=== PATIENT | female | born 1990 | race Caucasian/White ===

== ENCOUNTER 2017-11-16 12:08 | Emergency (ER) | payer OTHER, MEDICAID ==
[~2017-11-16] VITALS: Ht 165.1 cm; Wt 79.4 kg
[~2017-11-16 12:08] MED LIST: ABILIFY10 MG PO; NASONEX17 GM NASAL; TRAZODONE 150150 M1 PO; TRAZODONE HCL50 MG PO; VISTARIL 25 MG25 M1 PO; WELLBUTRIN 100100 MG PO; XANAX 0.25 MG0.25 MG PO; XANAX 0.5 MG0.5 MG PO
[2017-11-16] MEDS ORDERED: BIRTH CONTROL (12:22)
[2017-11-16] MEDS ORDERED: WELLBUTRIN 100100 MG PO (12:22)
[2017-11-16] MEDS ORDERED: BUSPIRONE HCL10 MG PO (12:23)
[2017-11-16] MEDS ORDERED: WELLBUTRIN XL150 MG PO ×2 (12:27→12:34)
[2017-11-16 12:34] VITALS: BP 106/71
== END 2017-11-16 12:35 | disposition home or self-care (01) ==
LOC: M.ERS 12:08
DX: Z76.0 Encounter for issue of repeat prescription (principal); F17.210 Nicotine dependence, cigarettes, uncomplicated; F31.9 Bipolar disorder, unspecified; F41.9 Anxiety disorder, unspecified; Z88.5 Allergy status to narcotic agent; Z91.040 Latex allergy status; Z88.1 Allergy status to other antibiotic agents

== ENCOUNTER 2017-11-30 12:50 | Emergency (ER) | payer OTHER, MEDICAID ==
[~2017-11-30] VITALS: Ht 165.1 cm; Wt 77.1 kg
[~2017-11-30 12:50] MED LIST changes: +BIRTH CONTROL; +BUSPIRONE HCL10 MG PO; +WELLBUTRIN XL150 MG PO
[2017-11-30 12:55] VITALS: BP 120/71
[2017-11-30] MEDS ORDERED: ABILIFY15 MG PO ×2 (13:01→13:10)
[2017-11-30] MEDS ORDERED: AMOXICILLIN 50500 MG PO (13:10)
[2017-11-30] MEDS ORDERED: IBUPROFEN 800800 M1 PO (13:10)
== END 2017-11-30 13:19 | disposition home or self-care (01) ==
LOC: M.ERS 12:50
DX: K08.89 Other specified disorders of teeth and supporting structures (principal); F31.9 Bipolar disorder, unspecified; F41.9 Anxiety disorder, unspecified; F17.210 Nicotine dependence, cigarettes, uncomplicated; Z98.890 Other specified postprocedural states; Z76.0 Encounter for issue of repeat prescription; Z88.5 Allergy status to narcotic agent; Z91.040 Latex allergy status; Z88.1 Allergy status to other antibiotic agents

== ENCOUNTER 2018-01-06 18:38 | Emergency (ER) | payer OTHER, MEDICAID ==
[~2018-01-06] VITALS: Ht 165.1 cm; Wt 79.8 kg
[~2018-01-06 18:38] MED LIST changes: +ABILIFY15 MG PO; +AMOXICILLIN 50500 MG PO; +IBUPROFEN 800800 M1 PO
[2018-01-06 18:42] VITALS: BP 102/67
[2018-01-06] MEDS ORDERED: ABILIFY20 MG PO (18:47)
[2018-01-07] MEDS ORDERED: CLONAZEPAM 0.50.5 M1 PO (18:20)
[2018-01-07] MEDS ORDERED: VISTARIL 25 MG25 M1 PO (18:21)
[2018-01-07] MEDS ORDERED: IBUPROFEN 800800 M1 PO (19:34)
== END 2018-01-06 19:30 | disposition left against medical advice (07) ==
LOC: M.ERS 18:38
DX: Z53.21 Procedure and treatment not carried out due to patient leaving prior to being seen by health care provider (principal)

== ENCOUNTER 2018-01-07 18:06 | Emergency (ER) | payer OTHER, MEDICAID ==
[~2018-01-07] VITALS: Ht 165.1 cm; Wt 79.8 kg
[~2018-01-07 18:06] MED LIST changes: +ABILIFY20 MG PO
[2018-01-07] MEDS ORDERED: CLONAZEPAM 0.50.5 M1 PO (18:20)
[2018-01-07] MEDS ORDERED: VISTARIL 25 MG25 M1 PO (18:21)
[2018-01-07] MEDS ORDERED: IBUPROFEN 800800 M1 PO (19:34)
[2018-01-07 19:44] VITALS: BP 118/69
== END 2018-01-07 19:45 | disposition home or self-care (01) ==
LOC: M.ERS 18:06
DX: S93.691A Other sprain of right foot, initial encounter (principal); F41.9 Anxiety disorder, unspecified; F32.9 Major depressive disorder, single episode, unspecified; F17.210 Nicotine dependence, cigarettes, uncomplicated; Z91.040 Latex allergy status; X58.XXXA Exposure to other specified factors, initial encounter; Y93.89 Activity, other specified; Y92.89 Other specified places as the place of occurrence of the external cause; Y99.0 Civilian activity done for income or pay

== ENCOUNTER 2018-06-27 15:32 | Emergency (ER) | payer OTHER, MEDICAID ==
[~2018-06-27] VITALS: Ht 165.1 cm; Wt 78.5 kg
[~2018-06-27 15:32] MED LIST changes: +CLONAZEPAM 0.50.5 M1 PO
[2018-06-27] MEDS ORDERED: BUSPIRONE HCL10 MG PO (15:48)
[2018-06-27] MEDS ORDERED: ABILIFY20 MG PO (16:03)
[2018-06-27] MEDS ORDERED: CLONAZEPAM 0.50.5 M1 PO (16:03)
[2018-06-27] MEDS ORDERED: TRAZODONE 150150 M1 PO (16:03)
[2018-06-27 16:10] VITALS: BP 103/61
== END 2018-06-27 16:11 | disposition home or self-care (01) ==
LOC: M.ERS 15:32
DX: F41.9 Anxiety disorder, unspecified (principal); F31.9 Bipolar disorder, unspecified; Z76.0 Encounter for issue of repeat prescription; F17.210 Nicotine dependence, cigarettes, uncomplicated; Z91.040 Latex allergy status

== ENCOUNTER 2018-10-07 15:26 | Emergency (ER) | payer OTHER ==
[~2018-10-07] VITALS: Ht 165.1 cm; Wt 81.7 kg
[2018-10-07] MEDS ORDERED: AMOXICILLIN 50500 MG PO (15:54)
[2018-10-07 16:05] VITALS: BP 112/66
== END 2018-10-07 16:05 | disposition home or self-care (01) ==
LOC: M.ERS 15:26
DX: K08.89 Other specified disorders of teeth and supporting structures (principal); F31.9 Bipolar disorder, unspecified; F41.9 Anxiety disorder, unspecified; F17.210 Nicotine dependence, cigarettes, uncomplicated; Z91.040 Latex allergy status; Z98.890 Other specified postprocedural states

== ENCOUNTER 2018-10-28 12:59 | Emergency (ER) | payer OTHER ==
[~2018-10-28] VITALS: Ht 165.1 cm; Wt 81.7 kg
[2018-10-28 13:11] VITALS: BP 123/82
[2018-10-28] MEDS ORDERED: VISTARIL50 MG PO (13:15)
== END 2018-10-28 13:38 | disposition home or self-care (01) ==
LOC: M.ERS 12:59
DX: R11.2 Nausea with vomiting, unspecified (principal); F17.210 Nicotine dependence, cigarettes, uncomplicated; G47.00 Insomnia, unspecified; F31.9 Bipolar disorder, unspecified; F41.9 Anxiety disorder, unspecified; Z91.040 Latex allergy status; Z98.890 Other specified postprocedural states

== ENCOUNTER 2018-11-14 16:24 | Emergency (ER) | payer OTHER ==
[~2018-11-14] VITALS: Ht 165.1 cm; Wt 86.2 kg
[~2018-11-14 16:24] MED LIST changes: +VISTARIL50 MG PO
[2018-11-14 16:34] VITALS: BP 110/59
[2018-11-14] MEDS ORDERED: BACTRIM DS TAB1 EAC1 PO (16:39)
[2018-11-14] MEDS ORDERED: FLAGYL500 M1 PO (16:41)
== END 2018-11-14 16:58 | disposition home or self-care (01) ==
LOC: M.ERS 16:24
DX: L05.01 Pilonidal cyst with abscess (principal); F31.9 Bipolar disorder, unspecified; F41.9 Anxiety disorder, unspecified; F17.210 Nicotine dependence, cigarettes, uncomplicated; Z91.040 Latex allergy status; Z98.890 Other specified postprocedural states

== ENCOUNTER 2019-02-14 17:21 | Emergency (ER) | payer OTHER ==
[~2019-02-14] VITALS: Ht 165.1 cm; Wt 86.2 kg
[~2019-02-14 17:21] MED LIST changes: +BACTRIM DS TAB1 EAC1 PO; +FLAGYL500 M1 PO
[2019-02-14] MEDS ORDERED: CLEOCIN HCL150 MG PO (17:40)
[2019-02-14] MEDS ORDERED: ACETAMINOPHEN-1 EAC1 PO (17:40)
[2019-02-14 17:46] VITALS: BP 118/82
== END 2019-02-14 17:47 | disposition home or self-care (01) ==
LOC: M.ERS 17:21
DX: N76.0 Acute vaginitis (principal); F17.210 Nicotine dependence, cigarettes, uncomplicated; G47.00 Insomnia, unspecified; F31.9 Bipolar disorder, unspecified; F41.9 Anxiety disorder, unspecified; Z91.040 Latex allergy status; Z98.890 Other specified postprocedural states

== ENCOUNTER 2019-04-04 07:25 | Emergency (ER) | payer OTHER ==
[~2019-04-04] VITALS: Ht 165.1 cm; Wt 81.7 kg
[~2019-04-04 07:25] MED LIST changes: +ACETAMINOPHEN-1 EAC1 PO; +CLEOCIN HCL150 MG PO
[2019-04-04 08:02] LABS: ABSOLUTE EOSINOPHILS 0.5 thou/uL (0.0-0.7); ABSOLUTE LYMPHOCYTES 1.4 thou/uL (0.8-5.3); ABSOLUTE MONOCYTES 0.8 thou/uL (0.0-1.2); ABSOLUTE NEUTROPHILS 3.3 thou/uL (1.6-8.1); BASOPHILS 0.7 %; HEMATOCRIT 38.9 % (37.0-47.0); HEMOGLOBIN 12.9 gm/dL (12.0-15.0); MCH 27.5 pg (26.0-34.0); MCHC 33.3 g/dL (28.0-37.0); MCV 82.6 fL (80.0-100.0); MONOCYTES 12.7 %; MPV 6.8 fl. (7.2-11.1); NUCLEATED RBCS 0 /100WBC; PLATELET COUNT* 261 thou/uL (150-400); POLYS 54.6 %; RBC 4.71 mil/uL (4.20-5.00); RDW-CV 14.2 % (10.5-14.5)
[2019-04-04 08:09] LABS: ANION GAP 10 mmol/L (7-16); BUN 9 mg/dL (7-18); CALCIUM 8.6 mg/dL (8.5-10.1); CHLORIDE 105 mmol/L (98-107); CO2 25 mmol/L (21-32); GLUCOSE 100 mg/dL (70-99); POTASSIUM 4.2 mmol/L (3.5-5.1); SODIUM 140 mmol/L (136-145)
[2019-04-04 08:17] LABS: SALICYLATE 3.4 mg/dL (2.8-20.0)
[2019-04-04 08:18] LABS: ACETAMINOPHEN < 2 ug/mL (10-30); ALBUMIN 3.5 g/dL (3.4-5.0); ALCOHOL < 10 mg/dL (<10); ALKALINE PHOSPHATASE 65 U/L (46-116); SGOT 22 U/L (15-37); SGPT 25 U/L (30-65); TOTAL BILIRUBIN 0.3 mg/dL (<0.1-1.0); TOTAL PROTEIN 7.6 g/dL (6.4-8.2); TROPONIN-I LEVEL <0.06 ng/mL (<0.06)
[2019-04-04 08:28] LABS: URINE BILIRUBIN NEGATIVE (Negative); URINE BLOOD TRACE (Negative); URINE CLARITY CLEAR; URINE COLOR YELLOW; URINE GLUCOSE-RANDOM NEGATIVE (Negative); URINE KETONES NEGATIVE (Negative); URINE LEUKOCYTES-REFLEX TRACE (Negative); URINE NITRITE-REFLEX NEGATIVE (Negative); URINE PROTEIN NEGATIVE (Negative); URINE SPECIFIC GRAVITY >= 1.030 (1.005-1.030); URINE UROBILINOGEN 0.2 E.U./dl (0.2-1.0)
[2019-04-04 08:37] LABS: AMP/METHAMP Negative (Negative); BARBITURATES Negative (Negative); BENZODIAZEPINES Negative (Negative); COCAINE Negative (Negative); METHADONE POSITIVE (Negative); OPIATES Negative (Negative); PCP Negative (Negative); THC Negative (Negative)
[2019-04-04 08:42] LABS: SQUAMOUS >10 Many /LPF (0-3)
[2019-04-04 08:43] LABS: BACTERIA-REFLEX 1-9 Few /HPF (None Seen); URINE RBC 0-2 Rare /HPF (0-2); URINE WBC-REFLEX 0-5 Rare /HPF (0-5)
[2019-04-04 08:44] LABS: CASTS None Seen /LPF (None Seen); CRYSTALS None Seen /LPF (None Seen); MUCUS 0-3 Light strn/LPF (None Seen)
[2019-04-04 10:32] VITALS: BP 98/67
--- NOTE | 2019-04-05 12:40 | EKG ---
[place] [address] ELECTROCARDIOGRAM REPORT Name: SANJEEVDULCE MARIA YANCI Room: [facility]#: [id number] Admission: 04/04/19 Attend Phys: Discharge: 04/04/19 Date of : [birth year] Report #: [id number] THIS REPORT FOR: //name// [facility] ED Test Date: 2019-04-04 Test Time: 07:28:26 Pat Name: DULCE MARIA PACE Department: Room: Gender: F Engine Manager: Corinne DAMON : 1990 Requested By: Mak Steel Order Number: [id number] MD: Harrison Pacheco Measurements Intervals [place] Rate: 122 P: 55 ID: [id number] QRS: 33 QRSD: 86 T: 10 QT: 316 QTc: 451 Interpretive Statements Sinus tachycardia Low voltage, precordial leads No previous ECG available for comparison Electronically Signed On 04-05-2019 12:40:26 CDT by Harrison Pacheco [email or web address] <ELECTRONICALLY SIGNED> By: Harrison Pacheco MD, [facility] 04/05/19 1240 0728 0728 Harrison Pacheco MD, FACC /EPI
== END 2019-04-04 10:40 | disposition home or self-care (01) ==
LOC: M.ERS 07:25
PROVIDERS: Emergency Medicine Emergency Medical Services
DX: T43.591A Poisoning by other antipsychotics and neuroleptics, accidental (unintentional), initial encounter (principal); G47.00 Insomnia, unspecified; F31.9 Bipolar disorder, unspecified; F41.9 Anxiety disorder, unspecified; Z91.040 Latex allergy status; Z98.890 Other specified postprocedural states

== ENCOUNTER 2020-11-03 14:28 | Emergency (ER) | payer MEDICAID ==
[~2020-11-03] VITALS: Ht 167.6 cm; Wt 86.2 kg
[2020-11-03 15:09] LABS: HEMATOCRIT 36.9 % (37.0-47.0); HEMOGLOBIN 11.9 gm/dL (12.0-15.0); MCHC 32.3 g/dL (28.0-37.0); MCV 83.8 fL (80.0-100.0); MPV 6.4 fl. (7.2-11.1); RBC 4.4 mil/uL (4.20-5.00); RDW-CV 14.7 % (10.5-14.5); WBC 11.9 thou/uL (4.0-11.0)
[2020-11-03 15:15] LABS: CALCIUM 7.9 mg/dL (8.5-10.1); CREATININE 0.8 mg/dL (0.6-1.3); POTASSIUM 3.7 mmol/L (3.5-5.1)
[2020-11-03 15:17] LABS: URINE BILIRUBIN NEGATIVE (Negative); URINE BLOOD NEGATIVE (Negative); URINE CLARITY CLEAR; URINE COLOR YELLOW; URINE GLUCOSE-RANDOM 1+ (Negative); URINE KETONES NEGATIVE (Negative); URINE LEUKOCYTES NEGATIVE (Negative); URINE NITRITE NEGATIVE (Negative); URINE PROTEIN 1+ (Negative); URINE UROBILINOGEN 0.2 E.U./dl (0.2-1.0)
[2020-11-03 15:20] LABS: ALBUMIN 3.3 g/dL (3.4-5.0); TOTAL BILIRUBIN 0.4 mg/dL (<0.1-1.0); TOTAL PROTEIN 7.3 g/dL (6.4-8.2)
[2020-11-03 15:24] LABS: AMP/METHAMP Negative (Negative); BARBITURATES Negative (Negative); BENZODIAZEPINES Negative (Negative); COCAINE Negative (Negative); METHADONE Negative (Negative); OPIATES POSITIVE (Negative); PCP Negative (Negative); THC Negative (Negative)
[2020-11-03 15:27] LABS: SALICYLATE < 2.8 mg/dL (2.8-20.0)
[2020-11-03 15:31] LABS: ACETAMINOPHEN < 2 ug/mL (10-30); ALCOHOL < 10 mg/dL (<10)
[2020-11-03 16:02] VITALS: BP 110/75
--- NOTE | 2020-11-04 09:02 | EKG ---
[place] [address] ELECTROCARDIOGRAM REPORT Name: SANJEEVDULCE MARIA YANCI Room: [facility]#: [id number] Admission: 11/03/20 Attend Phys: Discharge: 11/03/20 Date of : [birth year] Date of Service: 11/03/20 1435 Report #: [id number] THIS REPORT FOR: //name// [facility] ED Test Date: 2020-11-03 Test Time: 14:35:19 Pat Name: DULCE MARIA PACE Department: Room: Gender: F Cryptographic Technician: : 1990 Requested By: Trudy Payne Order Number: [id number] MD: Braxton Davenport Measurements Intervals [place] Rate: 98 P: 48 VT: 168 QRS: 41 QRSD: 81 T: 23 QT: 362 QTc: 463 Interpretive Statements Sinus rhythm Probable left atrial enlargement RSR' in V1 or V2, probably normal variant Compared to ECG 04/04/2019 07:28:26 RSR' in V1 or V2 now present Sinus tachycardia no longer present Electronically Signed On 11-04-2020 9:02:49 SALES SERVICE COORDINATOR by Braxton Davenport [email or web address] <ELECTRONICALLY SIGNED> By: Braxton Davenport MD, FACC 11/04/20 0902 1435 1435 Braxton Davenport MD, FACC /EPI
== END 2020-11-03 16:02 | disposition home or self-care (01) ==
LOC: M.ERS 14:28
PROVIDERS: Personal Emergency Response Attendant
DX: T40.1X1A Poisoning by heroin, accidental (unintentional), initial encounter (principal); F17.210 Nicotine dependence, cigarettes, uncomplicated; Z91.040 Latex allergy status; Z98.890 Other specified postprocedural states; Z79.899 Other long term (current) drug therapy; Y92.89 Other specified places as the place of occurrence of the external cause

== ENCOUNTER 2021-08-26 10:46 | Emergency (ER) | payer MEDICAID ==
[~2021-08-26] VITALS: Ht 167.6 cm; Wt 83.9 kg
[2021-08-26] MEDS ORDERED: BACTRIM DS TAB1 EACH PO (12:04)
[2021-08-26 12:12] VITALS: BP 104/64
== END 2021-08-26 12:13 | disposition home or self-care (01) ==
LOC: M.ERS 10:46
DX: L02.214 Cutaneous abscess of groin (principal); F17.210 Nicotine dependence, cigarettes, uncomplicated; Z91.040 Latex allergy status; Z79.899 Other long term (current) drug therapy

== ENCOUNTER 2021-10-24 16:35 | Emergency (ER) | payer MEDICAID ==
[~2021-10-24] VITALS: Ht 180.3 cm; Wt 108.9 kg
[~2021-10-24 16:35] MED LIST changes: +BACTRIM DS TAB1 EACH PO
[2021-10-24] MEDS ORDERED: TRAZODONE HCL50 MG PO ×2 (16:52→16:54)
[2021-10-24] MEDS ORDERED: WELLBUTRIN 100100 MG PO (16:54)
[2021-10-24 16:57] VITALS: BP 145/66
== END 2021-10-24 16:57 | disposition home or self-care (01) ==
LOC: M.ERS 16:35
DX: F31.9 Bipolar disorder, unspecified (principal); Z76.0 Encounter for issue of repeat prescription; G47.00 Insomnia, unspecified; F60.3 Borderline personality disorder; F41.9 Anxiety disorder, unspecified; F17.210 Nicotine dependence, cigarettes, uncomplicated; Z91.040 Latex allergy status; Z79.899 Other long term (current) drug therapy

== ENCOUNTER → 2022-01-10 | Emergency (ER) | payer MEDICAID ==
[~2022-01-10] VITALS: Ht 167.6 cm; Wt 81.7 kg
[~2022-01-10] MED LIST changes: +ZOLOFT50 M1 PO
[2022-01-10 16:08] VITALS: BP 121/85
== END ==
LOC: M.ERS 15:54
DX: F31.9 Bipolar disorder, unspecified (principal); F41.9 Anxiety disorder, unspecified; F12.90 Cannabis use, unspecified, uncomplicated; Z76.0 Encounter for issue of repeat prescription; Z98.890 Other specified postprocedural states; Z79.899 Other long term (current) drug therapy; Z91.040 Latex allergy status